=== PATIENT | male | born 2000 | race Caucasian/White ===

== ENCOUNTER 2023-12-28 21:40 | Inpatient (IN) | payer MEDICAID, OTHER, SELFPAY ==
[2023-12-28 21:44] VITALS: BP 123/81; PULSE 76; RESP 18; TEMP 36.8; O2SAT 98; BMI 19.7
--- NOTE | 2023-12-28 22:03 | ED_ITS ---
HPI - Psych General Chief Complaint: Psychiatric Symptoms Stated Complaint: Crisis Time Seen by Provider: 12/28/23 21:55 Source: patient Mode of arrival: ambulatory Limitations: no limitations History of Present Illness HPI Narrative: 23 yo male with PMH of bipolar disorder not on medications for many months and ETOH abuse states he drinks a lot no prior withdrawal seizures has been to detox 2 times in past. At is time presents with c/o ETOH abuse and SI. He reports planning to shoot himself but does not have gun in house. He also notes he feels shaky and his hearing voices. MD complaint: suicidal ideation, feels depressed and alcohol abuse Onset (ago): month(s) Duration: getting worse History of same: Yes Relieving factors: none Exacerbating factors: alcohol Context: recent alcohol abuse, not taking psychiatric medications and significant life stressor Associated psychiatric symptoms: depression and suicidal ideation Associated symptoms: other (feels shaky) Treatments prior to arrival: none If self harm: admits thoughts of self harm and has plan Related Data Home Medications ?Medication ?Instructions ?Recorded ?Confirmed No Known Home Meds 12/29/23 12/29/23 Allergies Allergy/AdvReac Type Severity Reaction Status Date / Time No Known Allergies Allergy Verified 12/28/23 21:49 Review of Systems 2 Review of Systems: Constitutional : No Fever, No Chills ENT/Mouth : No Ear Pain, No Nasal Congestion, No sore throat Eyes: No Eye Pain, No Swelling, No Redness Cardiovascular : No Chest Pain, No SOB Respiratory : No Cough, No Sputum, No Dyspnea Gastrointestinal : No Nausea, No Vomiting, No Diarrhea, No Hematochezia, No Melena Genitourinary : No Dysuria, No Urinary Frequency, No Hematuria Musculoskeletal : No Myalgias Skin : No Skin Lesions, No rash Neuro : No Weakness, No Numbness, No Paresthesias, No Dizziness, No Headache Psych : positive Anxiety, positive Depression, positive SI no HI All other systems reviewed and are negative PMFSH Past Medical History Attestation statement: The following information was validated with the patient. Medical History Alcohol abuse Bipolar 1 disorder Social History Social History (Updated 12/28/23 @ 22:30 by Denisha Bergeron DO) Alcohol intake: current Patient Tobacco Use Status: Current everyday Tobacco user Substance Use Type: Marijuana Advance Directives: No Advance Directives Information Provided: No Physical Exam 2 Vital Signs: Vital Signs: Last Vital Signs Temp 98.3 F 12/28/23 21:44 Pulse 76 12/28/23 21:44 Resp 18 12/28/23 21:44 BP 123/81 12/28/23 21:44 Pulse Ox 98 12/28/23 21:44 O2 Del Method Room Air 12/28/23 21:44 BMI result Body Mass Index 19.7 Appearance: Alert. Oriented X3. No acute distress. Calm and cooperative Eyes: Pupils equal, round and reactive to light. ENT: Pharynx normal. Neck: Normal inspection. Neck supple. CVS: Normal heart rate and rhythm. Pulses normal. Respiratory: No respiratory distress. Breath sounds normal. Abdomen: Soft and nontender. Skin: Skin warm and dry. Normal skin color. Normal skin turgor. Extremities: No lower extremity edema. No calf ttp Neuro: Oriented X 3. No motor deficit. No sensory deficit. does not appear tremulous. CN 2-12 intact Course Course Course Narrative: per CARE team inpatient bed search S12 signed observation continued currently meets inpatient level of psychiatric care 1228am Medications Administered Generic Name Dose Route Start Last Admin Trade Name Freq PRN Reason Stop Dose Admin Lorazepam 2 mg 12/28/23 22:03 12/28/23 22:17 Lorazepam 1 Mg Tablet PO 2 mg Q3H PRN Administration Alcohol Withdrawal Medical Decision Making Medical Decision Making [facility] Narrative: 23 yo male with PMH of bipolar disorder, ETOH abuse presents with c/o SI and ETOH abuse last drink was yesterday - at this time will start on CIWA and PRN ativan, basic labs, refer to CARE team. Differential Diagnosis Differential Diagnoses: The differential diagnosis associated with the presentation includes alcohol abuse, depression, SI Admission/Observation Consideration of admission/observation: Escalation of care including admission/observation considered physician observation started 1030pm until CARE team sees the patient and determines if patient is inpatient bed search Consult Healthcare Provider Management of the patient was discussed with: Behavioral Health Provider Lab Data [facility] Lab Attestation statement: I reviewed the patient's lab results. 12/28/23 22:19 12/28/23 22:19 Labs: Lab Results 12/28/23 12/28/23 12/28/23 Range/Units 22:12 22:19 22:24 WBC 6.7 (4.8-10.8) X10*3/uL RBC 4.73 (4.60-5.80) X10*6/uL Hgb 15.0 (14.0-18.0) g/dl Hct 43.7 (42.0-52.0) % MCV 92.4 (80.0-98.0) fL MCH 31.7 (27.0-33.0) pg MCHC 34.3 (31.0-36.0) g/dl RDW 13.0 (11.0-16.0) % Plt Count 190 (160-400) X10*3/uL MPV 10.8 (9.4-12.4) fL Immature Gran % (Auto) 0.3 (0.0-0.4) % Neut % (Auto) 56.5 (45-73) % Lymph % (Auto) 26.8 (20-40) % [place] % (Auto) 10.7 (2-11) % Eos % (Auto) 3.6 (0-4) % Baso % (Auto) 2.1 H (0-2) % Lymph # (Auto) 1.8 (1.2-4.9) X10*3/uL [place] # (Auto) 0.7 (0.1-1.2) X10*3/uL Eos # (Auto) 0.2 (0.0-0.4) X10*3/uL Baso # (Auto) 0.1 (0.0-0.2) X10*3/uL Abs Immat Gran (auto) 0.02 (0.00-0.03) X10*3/uL Absolute Neuts (auto) 3.8 (2.0-8.3) x10*3/uL Absolute Nucleated RBC 0.000 (0.0-0.012) X10*3/uL Nucleated RBC % (auto) 0.0 (0.0-0.2) /100WBC Sodium 136 (135-145) mmol/L Potassium 4.3 (3.3-5.1) mmol/L Chloride 102 (96-108) mmol/L Carbon Dioxide 26 (22-29) mmol/L Anion Gap 12 (12-20) BUN 13 (9-16) mg/dL Creatinine 0.88 (0.5-1.4) mg/dL Estim Creat Clear Calc 98.4 Estimated GFR > 60 Random Glucose 95 (60-115) mg/dL Calcium 9.3 (8.4-10.2) mg/dL Total Bilirubin 0.5 (0.0-1.0) mg/dL AST 27 (5-37) U/L ALT 19 (0-40) U/L Alkaline Phosphatase 71 (39-117) U/L Total Protein 7.5 (6.5-8.0) g/dL Albumin 4.7 (3.5-5.0) g/dL Urine Color Dark Yellow Urine Appearance Clear Urine pH 5.5 (5.0-9.0) Ur Specific [place] >= 1.030 H (1.005-1.025) Urine Protein Trace (Neg-Trace) mg/dL Urine Glucose (UA) Negative (Negative) mg/dL Urine Ketones Negative (Negative) mg/dL Urine Blood Negative (Negative) Urine Nitrite Negative (Negative) Ur Leukocyte Esterase Negative (Negative) Urine RBC 0-2 (0-2) /HPF Urine WBC 0-5 (0-5) /HPF Ur Squamous Epith Cells 0-2 (0-2) /HPF Urine Bacteria None Seen (None Seen) Hyaline Casts 0-2 (0-2) /LPF Salicylates < 5.0 L (15-30) mg/dL Urine Opiates Screen Not Detected (Not Detect) Urine Fentanyl Screen Not Detected (Not Detect) Acetaminophen < 3 (<30) mcg/mL Ur Barbiturates Screen Not Detected (Not Detect) Ur Phencyclidine Scrn Not Detected (Not Detect) Ur Amphetamines Screen Not Detected (Not Detect) U Benzodiazepines Scrn Not Detected (Not Detect) Urine Cocaine Screen Not Detected (Not Detect) U Marijuana (THC) Screen POSITIVE H (Not Detect) Ethyl Alcohol < 10 mg/dL Influenza Type A (PCR) NEGATIVE (Negative) Influenza Type B (PCR) NEGATIVE (Negative) RSV RNA Qual (PCR) NEGATIVE (Negative) SARS-CoV-2 RNA (RT-PCR) NEGATIVE (Negative) Social Determinants Patient?s care significantly limited by Social Determinants of Health including: Problems related to primary support group Discharge Plan Discharge Clinical Impression: Suicidal ideation, Alcohol abuse Patient Disposition: Still a Patient Prescriptions: No Action No Known Home Meds Print Language: German
[2023-12-28] MEDS: LORazepam 1 MG TABLET 2 MG PO (22:17)
[2023-12-28 22:24] LABS: MANUAL DIFF FLAG NO
[2023-12-28 22:26] LABS: Appearance Urine Clear; Color Urine Dark Yellow; Glucose Urine UA Negative (Negative); Leukocyte Esterase Urine Negative (Negative); Nitrite Urine Negative (Negative); PH 5.5 (5.0-9.0); Specific Gravity - Urine >= 1.030 (1.005-1.025); Urine Blood Negative (Negative); Urine Ketones Negative (Negative); Urine Protein Trace mg/dL (Neg-Trace)
[2023-12-28 22:29] LABS: Basophils Absolute Auto 0.1 X10*3/uL (0.0-0.2); Basophils Percent Auto 2.1 % (0-2); Eosinophils Absolute Auto 0.2 X10*3/uL (0.0-0.4); Eosinophils Percent Auto 3.6 % (0-4); Hematocrit 43.7 % (42.0-52.0); Imm Gran Abs Auto 0.02 X10*3/uL (0.00-0.03); Imm Gran Pct Auto 0.3 % (0.0-0.4); Lymphocytes Absolute Auto 1.8 X10*3/uL (1.2-4.9); Lymphocytes Percent Auto 26.8 % (20-40); Mean Corpuscular HGB Conc 34.3 g/dl (31.0-36.0); Mean Corpuscular Hemoglobin 31.7 pg (27.0-33.0); Mean Corpuscular Volume 92.4 fL (80.0-98.0); Mean Platelet Volume 10.8 fL (9.4-12.4); Monocytes Absolute Auto 0.7 X10*3/uL (0.1-1.2); Monocytes Percent Auto 10.7 % (2-11); Neutrophils Absolute Auto 3.8 x10*3/uL (2.0-8.3); Neutrophils Percent Auto 56.5 % (45-73); Platelet Count 190 X10*3/uL (160-400); Red Blood Count 4.73 X10*6/uL (4.60-5.80); White Blood Count 6.7 X10*3/uL (4.8-10.8)
[2023-12-28 22:31] LABS: Bacteria Urine None Seen (None Seen); Hyaline Casts Urine 0-2 /LPF (0-2); RBC Urine 0-2 /HPF (0-2); Squamous Epithelial Cell Urine 0-2 /HPF (0-2); WBC Urine 0-5 /HPF (0-5)
[2023-12-28 22:35] LABS: Amphetamine Screen Urine Not Detected (Not Detect); Barbiturates, Urine Not Detected (Not Detect); Benzodiazepines Screen Urine Not Detected (Not Detect); Cannabinoid Screen Urine POSITIVE (Not Detect); Cocaine Screen Urine Not Detected (Not Detect); Fentanyl, urine Not Detected (Not Detect); Opiate Screen Urine Not Detected (Not Detect); Phencyclidine Screen Urine Not Detected (Not Detect)
[2023-12-28 22:38] LABS: Ethanol < 10 mg/dL
[2023-12-28 22:40] LABS: Alanine Aminotransferase 19 U/L (0-40); Albumin Level 4.7 g/dL (3.5-5.0); Alkaline Phosphatase 71 U/L (39-117); Anion Gap 12 (12-20); Aspartate Amino Transferase 27 U/L (5-37); Bilirubin Total 0.5 mg/dL (0.0-1.0); Blood Urea Nitrogen 13 mg/dL (9-16); Calcium 9.3 mg/dL (8.4-10.2); Carbon Dioxide 26 mmol/L (22-29); Chloride 102 mmol/L (96-108); Creatinine Clr Calc Pharmacy 98.4; Estimated Glomerular Filt Rate > 60; Glucose Random 95 mg/dL (60-115); Potassium 4.3 mmol/L (3.3-5.1); Sodium 136 mmol/L (135-145); Total Protein 7.5 g/dL (6.5-8.0)
[2023-12-28 22:44] LABS: Acetaminophen LAB < 3 mcg/mL (<30); Salicylate < 5.0 mg/dL (15-30)
[2023-12-28 23:08] LABS: Influenza A PCR NEGATIVE (Negative); Influenza B PCR NEGATIVE (Negative); Resp Syncy Virus RNA Qual PCR NEGATIVE (Negative); SARS COV2 PCR INHOUSE NEGATIVE (Negative)
[2023-12-29 02:01] VITALS: BP 119/72; PULSE 84; RESP 16; TEMP 37.1; O2SAT 98
[2023-12-29 06:16] VITALS: BP 112/71; PULSE 80; RESP 16; O2SAT 98
--- NOTE | 2023-12-29 07:21 | PC.NURSE ---
PT IS SLEEPING RESP EVEN AND UNLABORED. WILL CONTINUE TO MONITOR.
[2023-12-29 07:34] VITALS: RESP 16
--- NOTE | 2023-12-29 07:34 | MHC.EDTECH ---
Patient asleep, respirations even and unlabored.
[2023-12-29 08:24] VITALS: BP 130/73; PULSE 56; RESP 16; TEMP 36.7; O2SAT 100
--- NOTE | 2023-12-29 08:25 | PC.NURSE ---
PT IS A/O X 4 NO SOB/KAISER NOTED SPEAKS IN FULL SENTENCES. DRANK COFFEE FROM HIS BREAKFAST TRAY. PT DENIES ANY PAIN/DISC. PT DENIES ANY SI/HI. PT STATES THAT HE SMOKE 2PPD AND IS REQUESTING A NICOTINE PATCH. AWARE. WILL CONTINUE TO MONITOR.
--- NOTE | 2023-12-29 08:30 | PC.NURSE ---
PT DENIES ANY HALLUCINATIONS. CIWA -1. AWARE. WILL CONTINUE TO MONITOR.
[2023-12-29] MEDS: Nicotine 21 MG PATCH.TD24 TRANSDERMA (08:34)
--- NOTE | 2023-12-29 10:20 | PC.NURSE ---
PT'S MOTHER, NANCY BUCKNER ([phone], [facility]) CALL AND THE PT SPOKE TO HIS MOTHER ON THE PT'S PHONE. PT STATES THAT IT IS OKAY TO GIVE HIS MOTHER IS LAB/IMAGING RESULTS OR ANY INFORMATION PERTAINING TO HIM.
--- NOTE | 2023-12-29 13:33 | PC.NURSE ---
RN TO RN REPORT GIVEN TO BETTINAY. PT AWARE OF PLAN OF CARE.
[2023-12-29 16:57] VITALS: BP 124/66; PULSE 64; RESP 18; O2SAT 99
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
[2023-12-29] MEDS: Nicotine Polacrilex 2 MG GUM BUCCAL (18:33)
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
[2023-12-30] MEDS: Nicotine Polacrilex 2 MG GUM BUCCAL (06:57)
[2023-12-30] MEDS: hydrOXYzine HCL 25 MG TABLET PO (06:57)
[2023-12-30 08:18] VITALS: BP 138/67; PULSE 66; RESP 16; TEMP 36.1; O2SAT 99
[2023-12-30] MEDS: Nicotine 21 MG PATCH.TD24 TRANSDERMA (08:30)
[2023-12-30 18:00] VITALS: BP 137/91; PULSE 67; RESP 18; TEMP 36; O2SAT 98
[2023-12-30] MEDS: Sertraline HCL 25 MG TABLET PO (18:09)
[2023-12-30] MEDS: QUEtiapine Fumarate 50 MG TABLET PO (21:06)
[2023-12-30] MEDS: traZODone HCL 50 MG TABLET PO (21:08)
--- NOTE | 2023-12-30 23:29 | HO.PSYCHPN ---
Subjective Subjective Date of Service: 12/30/23 Reason For Visit: SI Subjective Notes: Conditional Voluntary Interim History: Patient seen intermittently throughout the day. He is pleasant and agreeable, appears anxious. Not scoring on CIWA. He reports his mother says he was previously on Zoloft and said another medication, which she could not recall. He last took medication maybe a year ago or longer. He can not recall. He reports his mood as depressed, some irritability, but none noted during our discussion. He is interested in getting back on the ZOloft. I also suggest we could add Seroquel at night, given sleep issues and hx of bipolar adhd and AH, which he then recognized the name Seroquel, which reportedly helped for sleep at 50 mg and was agreeable to starting back on these meds. Denies any current thoughts of harming self or others. He currently denies any withdrawal symptoms and can tell he wont be having any . Sleeping, eating intact. Denies any other concerns Medication Compliance: Yes Side effects from medications: No Review of Systems Acute medical concerns: No Mental Status Exam Mental Status Exam Narrative: Alert, oriented x3. In no acute distress Patient Appearance: Unkempt Level of Consciousness: Alert Patient Behavior: Appropriate, friendly Mood Description: depressed Affect Description: calm, appropriate Speech Pattern: No Speech Thought Process: Linear coherent Thought Content: related to stressors Judgment: Fair Diagnostics Vital Signs (24Hr): Vital Signs - 24 hr 12/30/23 08:18 12/30/23 18:00 Temperature 97.0 F 96.8 F Pulse Rate 66 67 Respiratory Rate 16 18 Blood Pressure 138/67 137/91 H Pulse Oximetry 99 98 Oxygen Delivery Method Room Air Room Air BMI result Body Mass Index 19.7 Labs 12/28/23 22:19 12/28/23 22:19 Medications Medications Current Medications Acetaminophen (Acetaminophen 325 Mg Tablet) 650 mg PO Q6H PRN PRN Reason: Headache/Pain Mild Scale (1-3) Al Hydroxide/Mg Hydroxide (Magnesium Hydrox/Alum Hydrox 30 Ml Oral.Susp) 30 ml PO Q6H PRN PRN Reason: Heartburn/Nausea Hydroxyzine HCl (Hydroxyzine Hcl 25 Mg Tablet) 25 mg PO Q6H PRN PRN Reason: Anxiety Last Admin: 12/30/23 06:57 Dose: 25 mg Lorazepam (Lorazepam 1 Mg Tablet) 1 mg PO Q2H PRN PRN Reason: CIWA 6-10 Lorazepam (Lorazepam 1 Mg Tablet) 2 mg PO Q2H PRN PRN Reason: CIWA 11 and above Magnesium Hydroxide (Milk Of Magnesia 30 Ml Oral.Susp) 30 ml PO DAILY PRN PRN Reason: Constipation Nicotine (Nicotine 21 Mg Patch.Td24) 21 mg TRANSDERMA DAILY HENRY Last Admin: 12/30/23 08:30 Dose: 21 mg Nicotine Polacrilex (Nicotine Polacrilex 2 Mg Gum) 2 mg BUCCAL Q2H PRN PRN Reason: Nicotine Cravings Last Admin: 12/30/23 06:57 Dose: 2 mg Quetiapine Fumarate (Quetiapine Fumarate 50 Mg Tablet) 50 mg PO BEDTIME HENRY Last Admin: 12/30/23 21:06 Dose: 50 mg Sertraline HCl (Sertraline Hcl 25 Mg Tablet) 25 mg PO DAILY [facility] Last Admin: 12/30/23 18:09 Dose: 25 mg Trazodone HCl (Trazodone Hcl 50 Mg Tablet) 50 mg PO BEDTIME MRX1 PRN PRN Reason: Insomnia Last Admin: 12/30/23 21:08 Dose: 50 mg Allergies Allergies Allergy/AdvReac Type Severity Reaction Status Date / Time No Known Allergies Allergy Verified 12/28/23 21:49 Assessment & Plan Assessment & Plan (1) Bipolar affect, depressed: Status: Acute Code(s): F31.30 - Bipolar disorder, current episode depressed, mild or moderate severity, unspecified (2) Alcohol dependence: Qualifiers: Complication of substance-induced condition: uncomplicated Status: Acute Code(s): F10.20 - Alcohol dependence, uncomplicated (3) Polysubstance abuse: Status: Acute Code(s): F19.10 - Other psychoactive substance abuse, uncomplicated Plan start ZOloft 25 mg qd start Seroquel 50 mg qhs consider discont CIWA Reason for continued inpatient stay Substantial Risk for: rapid decompensation and med/psych decompensation Time Spent With Patient Time: Total time managing care of this patient today ____ minutes.
[2023-12-31 08:49] VITALS: BP 121/70; PULSE 64; RESP 16; TEMP 36.2; O2SAT 97
[2023-12-31] MEDS: Nicotine 21 MG PATCH.TD24 TRANSDERMA (09:05)
[2023-12-31] MEDS: Sertraline HCL 25 MG TABLET PO ×2 (09:05→15:06)
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
[2023-12-31 18:00] VITALS: BP 127/63; PULSE 63; TEMP 37.1; O2SAT 97
[2023-12-31] MEDS: traZODone HCL 50 MG TABLET PO (20:58)
[2023-12-31] MEDS: QUEtiapine Fumarate 50 MG TABLET PO (20:58)
[2024-01-01 08:12] VITALS: BP 126/60; PULSE 66; RESP 16; TEMP 36.7; O2SAT 98
[2024-01-01] MEDS: Nicotine 21 MG PATCH.TD24 TRANSDERMA (08:29)
[2024-01-01] MEDS: Sertraline HCL 50 MG TABLET PO (08:29)
--- NOTE | 2024-01-01 10:54 | MHC.RECOVRN ---
AUDIT-C Brief Intervention Pt had positive screen for unhealthy alcohol use on admission. Pt declined meeting with [facility] to discuss alcohol use and harm reduction.
[2024-01-01 17:48] VITALS: BP 135/81; PULSE 82; RESP 16; TEMP 36.1; O2SAT 99
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
--- NOTE | 2024-01-01 19:16 | PC.NURSE ---
Pt had a visit with his mother alejandro, pt cellphone given to mother and taken home per pt request, noted on valuables slip.
--- NOTE | 2024-01-01 20:07 | PM.EVENT ---
Event Note Date of Service: 01/01/24 Event Note: Consult placed to hospitalist service for evaluation of left great toe pain. This pain is long standing and chronic. He has a very obvious hallux valgus deformity of the left 1st proximal phalynx which has been present for year. He is a heavy consumer of alcohol- drinking about 18-20 nips per day which could predispose him to gout flare. There is no erythema or warmth over the 1st MTP joint, doubt gout. However, will check uric acid level. If elevated, >7.0, can treat with 5 day course prednisone, then 30mg x 1 day, then 20mg x1 day, then 10mg x1 day, then dc. He should follow up with outpt podiatry for further management of this issue. If not gout, tylenol or ibuprofen prn. No further intervention indicated. Imaging not indicated. Would recommend pt wear supportive shoes rather than walking the unit in socks. Thank you for allowing me to participate in this consult. Signing off at this time. Please do not hesitate to call for further questions or for Acute medical issues. Time Spent With Patient Time: Total time managing care of this patient today ____ minutes.
[2024-01-01] MEDS: QUEtiapine Fumarate 50 MG TABLET PO (21:57)
[2024-01-01] MEDS: traZODone HCL 50 MG TABLET PO (21:57)
[2024-01-02 08:09] VITALS: BP 124/63; PULSE 70; RESP 16; TEMP 36.8; O2SAT 99
[2024-01-02] MEDS: Sertraline HCL 50 MG TABLET PO (08:36)
[2024-01-02] MEDS: Nicotine 21 MG PATCH.TD24 TRANSDERMA (08:36)
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
[2024-01-02] MEDS: hydrOXYzine HCL 50 MG TABLET PO (15:02)
[2024-01-02 20:00] VITALS: BP 140/97; PULSE 77; RESP 18; TEMP 36.3; O2SAT 98
[2024-01-02] MEDS: QUEtiapine Fumarate 50 MG TABLET PO (22:30)
[2024-01-02] MEDS: traZODone HCL 50 MG TABLET PO (22:30)
[2024-01-03 07:00] VITALS: BMI 18.7
[2024-01-03 08:00] VITALS: BP 115/72; PULSE 78; RESP 16; TEMP 36.5; O2SAT 98
[2024-01-03] MEDS: Nicotine 21 MG PATCH.TD24 TRANSDERMA (08:34)
[2024-01-03] MEDS: Sertraline HCL 25 MG TABLET 75 MG PO (08:35)
[2024-01-03] MEDS: cloNIDine HCL 0.1 MG TABLET PO (16:10)
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
[2024-01-03 20:00] VITALS: BP 135/80; PULSE 82; TEMP 36.2; O2SAT 98
[2024-01-03] MEDS: QUEtiapine Fumarate 50 MG TABLET PO (23:06)
[2024-01-03] MEDS: traZODone HCL 50 MG TABLET PO (23:07)
[2024-01-04 08:00] VITALS: BP 108/65; PULSE 80; RESP 18; TEMP 36.9; O2SAT 98
[2024-01-04] MEDS: Nicotine 21 MG PATCH.TD24 TRANSDERMA (08:50)
[2024-01-04] MEDS: Sertraline HCL 25 MG TABLET 75 MG PO (08:51)
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
[2024-01-04 20:00] VITALS: BP 129/81; PULSE 76; RESP 18; TEMP 37; O2SAT 97
[2024-01-04] MEDS: QUEtiapine Fumarate 50 MG TABLET PO (20:33)
[2024-01-04] MEDS: traZODone HCL 50 MG TABLET PO (20:33)
[2024-01-05 08:00] VITALS: BP 121/60; PULSE 78; RESP 16; TEMP 36.4; O2SAT 99
[2024-01-05] MEDS: Nicotine 21 MG PATCH.TD24 TRANSDERMA (09:02)
[2024-01-05] MEDS: Sertraline HCL 100 MG TABLET PO (09:03)
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
[2024-01-05 20:00] VITALS: BP 147/97; PULSE 68; RESP 18; TEMP 36.1; O2SAT 98
[2024-01-05] MEDS: Acetaminophen 325 MG TABLET 650 MG PO (20:26)
[2024-01-05] MEDS: traZODone HCL 50 MG TABLET PO (21:16)
[2024-01-05] MEDS: QUEtiapine Fumarate 50 MG TABLET PO (21:16)
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
[2024-01-06 08:00] VITALS: BP 120/73; PULSE 74; RESP 16; TEMP 36.2; O2SAT 98
[2024-01-06] MEDS: Nicotine 21 MG PATCH.TD24 TRANSDERMA (08:33)
[2024-01-06] MEDS: Sertraline HCL 100 MG TABLET PO (08:34)
== END 2024-01-06 11:09 | disposition home or self-care (01) | DRG 753 ==
LOC: HO.ED 12-29 08:26 → HO.PM5 12-29 15:42
PROVIDERS: Emergency Medicine; Physician Assistant; Admitting Provider Psychiatry & Neurology Psychiatry; Emergency Provider Emergency Medicine Emergency Medical Services; Visit Provider Psychiatry & Neurology Psychiatry
DX: F31.30 Bipolar disorder, current episode depressed, mild or moderate severity, unspecified (principal); R45.851 Suicidal ideations; F10.20 Alcohol dependence, uncomplicated; F17.210 Nicotine dependence, cigarettes, uncomplicated; Z71.6 Tobacco abuse counseling; F43.10 Post-traumatic stress disorder, unspecified; Z23 Encounter for immunization; Z20.822 Contact with and (suspected) exposure to COVID-19; Z79.899 Other long term (current) drug therapy
CPT/HCPCS: 0241U; 36415; 80053; 80143; 80179; 80307; 81001; 84550; 85025; 90686; 99285; S9485

== ENCOUNTER → 2023-12-29 14:44 | Outpatient (BNV) | payer OTHER, SELFPAY | PROVIDERS: Admitting Provider Psychiatry & Neurology Psychiatry; Emergency Provider Emergency Medicine Emergency Medical Services; Visit Provider Psychiatry & Neurology Psychiatry | DX: F31.30 Bipolar disorder, current episode depressed, mild or moderate severity, unspecified (principal); F19.10 Other psychoactive substance abuse, uncomplicated; F10.20 Alcohol dependence, uncomplicated; F33.2 Major depressive disorder, recurrent severe without psychotic features; F43.11 Post-traumatic stress disorder, acute | CPT/HCPCS: 99231; 99232 ==